=== PATIENT | male | born 1975 | race African-American/Black ===

== ENCOUNTER 2021-02-02 19:59 | Emergency (ER) | payer OTHER ==
[2021-02-02 20:34] LABS: HEMOGLOBIN 13.7 gm/dl (14.0-17.5); RED BLOOD COUNT 4.66 M/UL (4.20-5.50); WHITE BLOOD COUNT 6.2 K/UL (4.5-11.0)
[2021-02-02 20:55] LABS: BUN/CREATININE RATIO 14 (0-10)
[2021-02-02] MEDS ORDERED: CEPHALEXIN500 M1 PO (22:47)
[2021-02-02] MEDS ORDERED: PROTONIX40 MG PO (22:47)
[2021-02-02] MEDS ORDERED: MYLANTA MAXIMU355 ML PO (22:47)
== END 2021-02-02 23:05 | disposition home or self-care (01) ==
LOC: ER1 19:59
PROVIDERS: Physician Assistant
DX: N39.0 Urinary tract infection, site not specified (principal); R73.9 Hyperglycemia, unspecified; I10 Essential (primary) hypertension; K21.9 Gastro-esophageal reflux disease without esophagitis; F17.200 Nicotine dependence, unspecified, uncomplicated; Z88.0 Allergy status to penicillin
CPT/HCPCS: 80053; 81001; 83690; 85025; 96374; 96375; 99284; C9113; J1885; Q9967

== ENCOUNTER → 2021-04-18 | Outpatient (CLI) | payer OTHER ==
[~2021-04-18] MED LIST: CEPHALEXIN500 M1 PO; MYLANTA MAXIMU355 ML PO; PROTONIX40 MG PO
== END ==
LOC: KOH-I 16:24
DX: M25.552 Pain in left hip (principal)
CPT/HCPCS: 73502